=== PATIENT | female | born 1975 | race African-American/Black ===

== ENCOUNTER 2022-08-20 08:20 | Emergency (ER) | payer OTHER ==
[~2022-08-20] VITALS: Ht 188 cm; Wt 104.5 kg
[2022-08-20] MEDS ORDERED: methylPREDNISolone 125MG 2ML VIAL IV ONE (09:25)
[2022-08-20] MEDS ORDERED: NS 1,000 ML IV ONE (09:25)
[2022-08-20] MEDS ORDERED: IPRATROPIUM 0.5MG/ALBUTEROL 2.5MG INH SOL UD 3ML (DUONEB) NEB ONE (09:25)
[2022-08-20] MEDS ORDERED: OXYMETAZOLINE 0.05% NASAL SPRAY (AFRIN) ONE (09:45)
[2022-08-20] MEDS ORDERED: ISOVUE-370 76% 100ML VIAL As Ordered ONE (10:05)
[2022-08-20 10:06] LABS: BASO % 0.3 % (0.0-1.0); EOS # 0.2 10^3/uL (0.0-0.5); EOS % 2.1 % (0.0-3.0); HEMATOCRIT 37.8 % (36.0-47.0); HEMOGLOBIN 12.4 g/dl (12.0-15.5); LYMPH % 18.1 % (24.0-44.0); MEAN CORPUSCULAR HEMOGLOBIN 25.5 pg (27.0-33.0); MEAN CORPUSCULAR HGB CONC 32.8 g/dl (32.0-36.5); MEAN CORPUSCULAR VOLUME 77.8 fl (80.0-96.0); MONO # 0.6 10^3/uL (0.0-0.8); MONO % 5.7 % (2.0-8.0); NEUTROPHILS # 8.3 10^3/uL (1.5-8.5); NEUTROPHILS % 73.4 % (36.0-66.0); PLATELET COUNT, AUTOMATED 162 10^3/uL (150-450); RED BLOOD COUNT 4.86 10^6/uL (4.00-5.40); WHITE BLOOD COUNT 11.3 10^3/uL (4.0-10.0)
[2022-08-20] MEDS ORDERED: CETI10TA4 PO (12:35)
[2022-08-20] MEDS ORDERED: AMOX875T2 PO (12:35)
[2022-08-20] MEDS ORDERED: MUCI600T31 PO (12:38)
[2022-08-20 12:45] VITALS: BP 134/87; TEMP 96.5; O2SAT 100
[2022-08-26 17:07] LABS: ANCA-ATYPICAL <1:20 titer (Neg:<1:20); CYTOPLASMIC NEUTROP AB ANCA-C <1:20 titer (Neg:<1:20); PERINUCLEAR AB ANCA-P <1:20 titer (Neg:<1:20)
== END 2022-08-20 13:25 | disposition home or self-care (01) ==
LOC: M ED 08:20
DX: J20.9 Acute bronchitis, unspecified (principal); R04.0 Epistaxis; J33.9 Nasal polyp, unspecified; J01.90 Acute sinusitis, unspecified; Z88.8 Allergy status to other drugs, medicaments and biological substances; Z91.010 Allergy to peanuts; Z79.2 Long term (current) use of antibiotics; Z79.899 Other long term (current) drug therapy
CPT/HCPCS: 70487; 71046; 80047; 85025; 85652; 86037; 86140; 94640; 96361; 96374; 99284; J2930; Q9967

== ENCOUNTER 2022-12-21 22:05 | Emergency (ER) | payer OTHER ==
[~2022-12-21] VITALS: Ht 188 cm; Wt 108.3 kg
[~2022-12-21 22:05] MED LIST: AMOX875T2 PO; CETI10TA4 PO; MUCI600T31 PO
[2022-12-21 22:07] VITALS: BP 144/91; TEMP 97.1; O2SAT 100
== END 2022-12-22 06:17 | disposition left against medical advice (07) ==
LOC: M ED 22:05
DX: Z53.21 Procedure and treatment not carried out due to patient leaving prior to being seen by health care provider (principal)

== ENCOUNTER 2023-05-04 10:37 | Emergency (ER) | payer OTHER ==
[~2023-05-04] VITALS: Ht 188 cm; Wt 106.8 kg
[2023-05-04 11:11] LABS: BASO % 0.4 % (0.0-1.0); EOS # 0.2 10^3/uL (0.0-0.5); EOS % 2.2 % (0.0-3.0); HEMATOCRIT 36.7 % (36.0-47.0); HEMOGLOBIN 12.3 g/dl (12.0-15.5); LYMPH # 2.2 10^3/uL (1.5-5.0); LYMPH % 28.6 % (24.0-44.0); MEAN CORPUSCULAR HEMOGLOBIN 25.8 pg (27.0-33.0); MEAN CORPUSCULAR HGB CONC 33.5 g/dl (32.0-36.5); MEAN CORPUSCULAR VOLUME 76.9 fl (80.0-96.0); MONO # 0.5 10^3/uL (0.0-0.8); MONO % 6.1 % (2.0-8.0); NEUTROPHILS # 4.8 10^3/uL (1.5-8.5); NEUTROPHILS % 62.1 % (36.0-66.0); PLATELET COUNT, AUTOMATED 155 10^3/uL (150-450); RED BLOOD COUNT 4.77 10^6/uL (4.00-5.40); WHITE BLOOD COUNT 7.8 10^3/uL (4.0-10.0)
[2023-05-04 11:38] LABS: CPK CREATINE PHOSPHOKINASE 141 U/L (34-145)
[2023-05-04 11:39] LABS: BLOOD UREA NITROGEN 13 MG/DL (9-23); CALCIUM LEVEL 8.2 MG/DL (8.5-10.1); CARBON DIOXIDE LEVEL 23 MMOL/L (20-31); CHLORIDE LEVEL 106 MMOL/L (98-107); CK-MB VALUE MASS < 1.0 NG/ML (<3.6); CREATININE FOR GFR 0.67 MG/DL (0.55-1.30); GLOMERULAR FILTRATION RATE > 60.0 (>58); GLUCOSE, FASTING 90 MG/DL (60-100); POTASSIUM SERUM 3.8 MMOL/L (3.5-5.1); SODIUM LEVEL 137 MMOL/L (136-145)
[2023-05-04] MEDS ORDERED: ISOVUE-370 76% 100ML VIAL As Ordered ONE (11:41)
[2023-05-04] MEDS ORDERED: NATU1TAB5 PO (12:00)
[2023-05-04] MEDS ORDERED: CHOL125C5 PO (12:00)
[2023-05-04] MEDS ORDERED: HOME MED LIST COMPLETE! XX SCH (12:05)
[2023-05-04 12:39] LABS: CK-MB VALUE MASS < 1.0 NG/ML (<3.6)
[2023-05-04 12:40] LABS: CPK CREATINE PHOSPHOKINASE 118 U/L (34-145); MB/CK RELATIVE INDEX 0.84 (< OR =4)
[2023-05-04 13:15] VITALS: BP 129/69; O2SAT 98
[2023-05-04 13:41] VITALS: TEMP 97.7
== END 2023-05-04 14:00 | disposition home or self-care (01) ==
LOC: EDBD 10:37 → M ED 10:37
DX: R07.9 Chest pain, unspecified (principal); R05.9 Cough, unspecified; Z88.8 Allergy status to other drugs, medicaments and biological substances; Z91.010 Allergy to peanuts; Z79.899 Other long term (current) drug therapy
CPT/HCPCS: 36415; 71045; 71275; 80048; 82550; 82553; 84484; 85025; 93005; 93041; 94760; 99285; Q9967